=== PATIENT | female | born 1985 | race American Indian/Alaskan Native ===

== ENCOUNTER 2019-03-19 07:05 | Emergency (ER) | payer MEDICAID ==
[2019-03-19 07:12] VITALS: BP 131/62
--- NOTE | 2019-03-19 07:48 | Emergency Department Report ---
Minor Respiratory - HPI Chief Complaint: Upper Respiratory Infection Stated Complaint: COUGH Time Seen by Provider: 03/19/19 07:36 Duration: 3 weeks Minor Respiratory: Yes Able to Tolerate Fluids, Yes Cough, Yes Chest Pain (with coughing), No Rhinorrhea, No Sore Throat, No Ear Pain, No Sick Contacts, No Hemoptysis, No Shortness of Breath, No Fever Other History: 33-year-old female with no prior medical history who presents to ED complaining of dry intermittent cough for the past 3 weeks. Patient states that she's been coughing so much that she Chest pain with coughing. Patient also complaining of throat pain. Patient states she works in [employer]. He denies fevers/chills/nausea vomiting or abdominal pain ED Review of Systems ROS: Stated complaint: COUGH Other details as noted in HPI Comment: All other systems reviewed and negative ED Past Medical Hx - Past Medical History Previous Medical History?: Yes Additional medical history: Dysfunctional uterine bleeding - Surgical History Past Surgical History?: Yes Additional Surgical History: c section - Social History Smoking Status: Never Smoker Substance Use Type: Marijuana - Medications Home Medications: Home Medications Medication Instructions Recorded Confirmed Last Taken Type medroxyPROGESTERone ACETATE 10 mg PO QDAY #7 tablet 07/02/15 Unknown Rx [Provera] Benzonatate [Tessalon Perles] 100 mg PO Q8HR #20 capsule 03/19/19 Unknown Rx Minor Respiratory Exam - Exam General: Vital signs noted. No distress. Alert and acting appropriately. HEENT: Yes Moist Mucous Membranes, No Pharyngeal Erythema, No Pharyngeal Exudates, No Rhinorrhea, No Conjuctival Injection, No Frontal Tenderness, No Maxillary Tenderness Ear: Neither TM Bulge, Neither TM Erythema, Neither EAC Pain, Neither EAC Discharge Neck: Yes Supple, No Adenopathy Lungs: Yes Good Air Exchange, No Wheezes, No Ronchi, No Stridor, No Cough, No Labored Respirations, No Retractions, No Use of Accessory Muscles, No Other Abnormal Lung Sounds Heart: Yes Regular, No Murmur Abdomen: Yes Normal Bowel Sounds, No Tenderness, No Peritoneal Signs Skin: No Rash, No Edema Neurologic: Alert and oriented, no deficits. Musculoskeletal: Unremarkable. ED Course Vital Signs 03/19/19 03/19/19 07:11 07:23 Temperature 97.7 F 97.7 F Pulse Rate 77 77 Respiratory 16 16 Rate Blood Pressure 131/62 Blood Pressure 131/62 [Right] O2 Sat by Pulse 97 97 Oximetry ED Medical Decision Making - Radiology Data Radiology results: report reviewed, image reviewed CHEST 2 VIEWS INDICATION: Productive cough for 3 weeks. COMPARISON: None FINDINGS: Support devices: None. Heart: Within normal limits. Lungs/pleura: No acute air space or interstitial disease. No pneumothorax. Additional findings: None. IMPRESSION: Normal chest x-ray. Signer Name: Russell Rendon Jr, MD Signed: 03/19/2019 8:28 AM Workstation Name: [id number] Transcribed By: TTR Dictated By: RUSSELL RENDON JR, MD Electronically Authenticated By: RUSSELL RENDON JR, MD Signed Date/Time: 03/19/19827 - Medical Decision Making 33 y o female presents with bronchitis Chest x-ray obtained, chest x-ray shows no acute findings to report above Discussed findings with the patient. I discussed with the patient to follow up with her primary care physician within a week. Discussed with patient her bronchitis usually resolves on its own without infection. Vital signs are normal patient is in no acute respiratory distress. Patient received Robitussin in the ED for cough suppressant. She was speaking in clear sentences and states she understands instructions. Critical care attestation.: If time is entered above; I have spent that time in minutes in the direct care of this critically ill patient, excluding procedure time. ED Disposition Clinical Impression: Upper respiratory infection, Bronchitis Disposition: DC-01 TO HOME OR SELFCARE Is pt being admited?: No Does the pt Need Aspirin: No Condition: Stable Instructions: Acute Bronchitis (ED), Upper Respiratory Infection (ED) Additional Instructions: Make sure to follow up with the primary care physician as discussed. Take all your medications as you've been prescribed. If you have any worsening symptoms or develop new symptoms please return to ED immediately. Prescriptions: Benzonatate [Tessalon Perles] 100 mg PO Q8HR #20 capsule Referrals: PRIMARY CARE, [Primary Care Provider] - 3-5 Days [facility] [Outside] - 3-5 Days Forms: Work/School Release Form(ED) Time of Disposition: 08:42
[2019-03-19] MEDS ORDERED: ROBITUSSIN PO ONE (08:28)
--- NOTE | 2019-03-19 08:32 | XRay Report ---
CHEST 2 VIEWS INDICATION: Productive cough for 3 weeks. COMPARISON: None FINDINGS: Support devices: None. Heart: Within normal limits. Lungs/pleura: No acute air space or interstitial disease. No pneumothorax. Additional findings: None. IMPRESSION: Normal chest x-ray. Signer Name: Russell Rankin Jr, MD Signed: 03/19/2019 8:28 AM Workstation Name: [id number]
== END 2019-03-19 08:57 | disposition home or self-care (01) ==
LOC: ED 07:05
DX: J40 Bronchitis, not specified as acute or chronic (principal); J06.9 Acute upper respiratory infection, unspecified; F12.10 Cannabis abuse, uncomplicated; Z79.899 Other long term (current) drug therapy; Z88.5 Allergy status to narcotic agent
CPT/HCPCS: 71046

== ENCOUNTER 2019-07-12 09:51 | Emergency (ER) | payer MEDICAID ==
[2019-07-12 10:06] VITALS: BP 121/77
--- NOTE | 2019-07-12 10:39 | Emergency Department Report ---
Chief Complaint: Back Pain/Injury Stated Complaint: CORNELIUS/UPPER MUSCLE PULLED/PAIN Time Seen by Provider: 07/12/19 10:37 - Exam Vital Signs: Vital Signs 07/12/19 10:02 Temperature 97.8 F Pulse Rate 71 Respiratory 16 Rate Blood Pressure 121/77 O2 Sat by Pulse 100 Oximetry MSE screening note: Focused history and physical exam performed. Due to findings the following was ordered: ED Medical Decision Making - Medical Decision Making Ms. Mack is a very pleasant 34-year-old female who presents with pain in the right upper back. She feels she may have pulled a muscle while moving furniture. Ibuprofen provided mild relief. On exam: There is spasm in the rhomboid region of the right upper back. Full range of motion of her right shoulder. Patient appears well otherwise. Medical screening exam performed and completed. She does not have an acute emergent condition. Recommended iizk-ope-fdcydez remedies such as ibuprofen and being a high patch. ED Disposition for MSE Clinical Impression: Encounter for medical screening examination Disposition: MED SCREENING EXAM-LEFT Condition: Stable Additional Instructions: Please take ibuprofen 4 times a day for the next few days. Please use heat therapy as discussed. Forms: Work/School Release Form(ED)
== END 2019-07-12 10:49 | disposition left against medical advice (07) ==
LOC: ED 09:51
DX: M54.9 Dorsalgia, unspecified (principal); Z00.00 Encounter for general adult medical examination without abnormal findings
CPT/HCPCS: 99282

== ENCOUNTER 2019-07-28 19:25 | Emergency (ER) | payer BC, MEDICAID ==
[2019-07-28] MEDS ORDERED: ACETAMINOPHEN 325 MG TAB PO ONE (21:56)
--- NOTE | 2019-07-28 21:58 | Event Note ---
ED Screening Note Date of service: 07/28/19 Time: 21:57 ED Screening Note: Pt complains of cough, fever, SOB, and CP x 5 days denies N/V/D This initial assessment/diagnostic orders/clinical plan/treatment(s) is/are subject to change based on patients health status, clinical progression and re- assessment by fellow clinical providers in the ED. Further treatment and workup at subsequent clinical providers discretion. Patient/guardian urged not to elope from the ED as their condition may be serious if not clinically assessed and managed. Initial orders include: CXR labs tylenol
[2019-07-28 22:08] LABS: Basophils # (Auto) 0.1 K/mm3 (0.0-0.1); Basophils % (Auto) 0.8 % (0.0-1.8); Eosinophils # (Auto) 0.4 K/mm3 (0.0-0.4); Eosinophils % (Auto) 3.5 % (0.0-4.3); Hematocrit 27.7 % (30.3-42.9); Hemoglobin 8.9 gm/dl (10.1-14.3); Lymphocytes # (Auto) 2.6 K/mm3 (1.2-5.4); Lymphocytes % (Auto) 24.1 % (13.4-35.0); Mean Corpuscular HGB Conc 32 % (30-34); Mean Corpuscular Volume 74 fl (79-97); Monocytes # (Auto) 0.9 K/mm3 (0.0-0.8); Monocytes % (Auto) 8.1 % (0.0-7.3); Platelet Count 495 K/mm3 (140-440); Red Blood Count 3.76 M/mm3 (3.65-5.03); Red Cell Distribution Width 17.8 % (13.2-15.2)
[2019-07-28 22:20] LABS: BUN/Creatinine Ratio 16; Blood Urea Nitrogen 13 mg/dL (7-17); Calcium 8.9 mg/dL (8.4-10.2); Hemolysis Index 0
[2019-07-28] MEDS ORDERED: IBUPROFEN 600 MG TAB PO ONE (22:30)
[2019-07-28] MEDS ORDERED: predniSONE 20 MG TAB PO ONE (22:30)
--- NOTE | 2019-07-28 23:18 | Emergency Department Report ---
- General Chief Complaint: Upper Respiratory Infection Stated Complaint: FEVER, COUGH, SHORTNESS OF BREATH Source: patient Mode of arrival: Ambulatory Limitations: No Limitations - History of Present Illness Initial Comments: Patient is a 34-year-old -Prydeinig female with no past medical history presents to the ED with complaint of acute onset persistent nasal and sinus congestion, persistent dry cough with frontal sinus pressure, sore throat, diffuse body aches and pains, subjective fever and chills for the last 5 days. 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 Patient denies dizziness, chest pain, shortness of breath, abdominal pain, nausea, vomiting, dysuria, urinary frequency and urgency, diarrhea, syncope or palpitations. MD Complaint: fever, cough, sore throat, rhinorrhea, nasal congestion, sinus pain, other (Diffuse body aches and pains) -: Sudden, days(s) (5) Severity: severe Severity scale (0 -10): 7 Quality: sharp, aching Consistency: constant Improves With: nothing Worsens With: nothing Context: sick contacts Associated Symptoms: denies other symptoms, fever, chills, myalgias, headache, rhinorrhea, nasal congestion, sore throat, cough. denies: diaphoresis, stiff neck, chest pain, shortness of breath, abdominal pain, nausea, vomiting, diarrhea, dysuria, rash, confusion, right sweats, weight loss, epistaxis, hoarseness, other Treatments Prior to Arrival: none - Related Data Previous Rx's Medication Instructions Recorded Last Taken Type medroxyPROGESTERone ACETATE 10 mg PO QDAY #7 tablet 07/02/15 Unknown Rx [Provera] Benzonatate [Tessalon Perles] 100 mg PO Q8HR #20 capsule 03/19/19 Unknown Rx Amoxicillin [Trimox CAP] 500 mg PO Q8H #30 capsule 07/28/19 Unknown Rx Benzonatate [Tessalon Perles] 100 mg PO Q8HR #30 capsule 07/28/19 Unknown Rx Ibuprofen [Motrin] 600 mg PO Q8H PRN #24 tablet 07/28/19 Unknown Rx methylPREDNISolone [Medrol 4MG 4 mg PO DAILY #21 tab.ds.pk 07/28/19 Unknown Rx DOSEPAK (21 tabs)] Allergies Allergy/AdvReac Type Severity Reaction Status Date / Time codeine Allergy Itching Verified 07/12/19 09:53 ED Review of Systems ROS: Stated complaint: FEVER, COUGH, SHORTNESS OF BREATH Other details as noted in HPI Constitutional: chills, fever, malaise Eyes: denies: eye pain, eye discharge, vision change ENT: throat pain, congestion. denies: ear pain Respiratory: cough. denies: shortness of breath, wheezing Cardiovascular: denies: chest pain, palpitations Endocrine: no symptoms reported Gastrointestinal: denies: abdominal pain, nausea, diarrhea Genitourinary: denies: urgency, dysuria, discharge Musculoskeletal: arthralgia, myalgia. denies: back pain, joint swelling Skin: denies: rash, lesions Neurological: headache. denies: weakness, paresthesias Psychiatric: denies: anxiety, depression Hematological/Lymphatic: denies: easy bleeding, easy bruising ED Past Medical Hx - Past Medical History Previous Medical History?: No Additional medical history: Dysfunctional uterine bleeding - Surgical History Past Surgical History?: Yes Additional Surgical History: c section - Social History Smoking Status: Never Smoker Substance Use Type: None - Medications Home Medications: Home Medications Medication Instructions Recorded Confirmed Last Taken Type medroxyPROGESTERone ACETATE 10 mg PO QDAY #7 tablet 07/02/15 Unknown Rx [Provera] Benzonatate [Tessalon Perles] 100 mg PO Q8HR #20 capsule 03/19/19 Unknown Rx Amoxicillin [Trimox CAP] 500 mg PO Q8H #30 capsule 07/28/19 Unknown Rx Benzonatate [Tessalon Perles] 100 mg PO Q8HR #30 capsule 07/28/19 Unknown Rx Ibuprofen [Motrin] 600 mg PO Q8H PRN #24 tablet 07/28/19 Unknown Rx methylPREDNISolone [Medrol 4MG 4 mg PO DAILY #21 tab.ds.pk 07/28/19 Unknown Rx DOSEPAK (21 tabs)] ED Physical Exam - General Limitations: No Limitations General appearance: alert, in no apparent distress - Head Head exam: Present: atraumatic, normocephalic, normal inspection - Eye Eye exam: Present: normal appearance Pupils: Present: normal accommodation - ENT ENT exam: Present: normal orophraynx, mucous membranes moist, TM's normal bilaterally, normal external ear exam, other (Grossly congested nasal passages; palpable frontal and maxillary sinus tenderness) - Neck Neck exam: Present: normal inspection, full ROM. Absent: tenderness, lymphadenopathy - Respiratory Respiratory exam: Present: normal lung sounds bilaterally. Absent: respiratory distress, wheezes, rales, chest wall tenderness, accessory muscle use, decreased breath sounds - Cardiovascular Cardiovascular Exam: Present: normal rhythm, tachycardia, normal heart sounds. Absent: systolic murmur, diastolic murmur, rubs, gallop - GI/Abdominal GI/Abdominal exam: Present: soft, normal bowel sounds. Absent: tenderness, guarding, hyperactive bowel sounds, hypoactive bowel sounds - Extremities Exam Extremities exam: Present: normal inspection, full ROM, normal capillary refill - Back Exam Back exam: Present: normal inspection, full ROM. Absent: tenderness, muscle spasm, paraspinal tenderness, vertebral tenderness - Neurological Exam Neurological exam: Present: alert, oriented X3, CN II-XII intact, normal gait, reflexes normal - Psychiatric Psychiatric exam: Present: normal affect, normal mood - Skin Skin exam: Present: warm, dry, intact, normal color. Absent: rash ED Course Vital Signs 07/28/19 07/28/19 19:31 22:34 Temperature 100.3 F H Pulse Rate 110 H Respiratory 18 18 Rate Blood Pressure 140/88 O2 Sat by Pulse 100 Oximetry ED Medical Decision Making - Lab Data Result diagrams: 07/28/19 21:59 07/28/19 21:59 - Medical Decision Making This is a 34-year-old female who presented to the ED with nasal and sinus congestion, frontal sinus pressure and headache, sore throat, diffuse body aches and pains, dry cough, fever and chills and lack of appetite. In the ED, patient is alert and oriented x3 and is not in any distress, but tachycardic and febrile in triage. Patient was treated for fever in the ED and also given oral prednisone. Lab test results were reviewed and are all nonactionable. Chest x- ray was ordered but the patient declined the test. On reevaluation, patient's fever resolved as well as tachycardia which also resolved. Patient felt better and was patient was discharged home on medications. Patient was advised to follow-up with her primary care physician in 7 to 10 days for reevaluation or return to the ED immediately if symptoms get worse. - Differential Diagnosis Pneumonia; Sinusitis; Strep Pharyngitis; Influenza; URI Critical care attestation.: If time is entered above; I have spent that time in minutes in the direct care of this critically ill patient, excluding procedure time. ED Disposition Clinical Impression: Acute upper respiratory infection, Acute non-recurrent frontal sinusitis, Fever and chills Acute bronchitis Qualifiers: Bronchitis organism: unspecified organism Qualified Code(s): J20.9 - Acute bronchitis, unspecified Disposition: TO HOME OR SELFCARE Is pt being admited?: No Does the pt Need Aspirin: No Condition: Stable Instructions: Acute Bronchitis (ED), Upper Respiratory Infection (ED), Acute Bacterial Rhinosinusitis (ED) Additional Instructions: Take medication with food, drink plenty fluids and follow-up with your primary care physician in 7 to 10 days for reevaluation. Return to the ED immediately if symptoms get worse. Prescriptions: methylPREDNISolone [Medrol 4MG DOSEPAK (21 tabs)] 4 mg PO DAILY #21 tab.ds.pk Ibuprofen [Motrin] 600 mg PO Q8H PRN #24 tablet PRN Reason: Pain Benzonatate [Tessalon Perles] 100 mg PO Q8HR #30 capsule Amoxicillin [Trimox CAP] 500 mg PO Q8H #30 capsule Referrals: MARCEL JOSEPH MD [Staff Physician] - 3-5 Days Forms: Work/School Release Form(ED) Time of Disposition: 23:16 Print Language: UPPER SORBIAN
[2019-07-28 23:32] VITALS: BP 118/70
== END 2019-07-28 23:28 | disposition home or self-care (01) ==
LOC: ED 19:25
DX: J06.9 Acute upper respiratory infection, unspecified (principal); J20.9 Acute bronchitis, unspecified; J01.10 Acute frontal sinusitis, unspecified; R50.9 Fever, unspecified; Z88.6 Allergy status to analgesic agent; Z79.899 Other long term (current) drug therapy; Z98.890 Other specified postprocedural states
CPT/HCPCS: 36415; 80048; 84703; 85025; 99283; J7512